=== PATIENT | female | born 1960 | race Caucasian/White ===

== ENCOUNTER 2018-09-18 16:03 | Outpatient (CLI) | payer BC ==
--- NOTE | 2018-09-18 17:45 | RAD ---
CHEST PA AND LATERAL: INDICATIONS: History of URI. COMPARISON: None. FINDINGS: The lungs are clear. The cardiomediastinal silhouette is within normal limits. There is mild spondy losis of the thoracic spine. There is mild thoracic scoliosis. IMPRESSION: No acute cardiopulmonary abnormalities. POS: [facility]
== END 2018-09-18 16:04 | disposition home or self-care (01) ==
LOC: BICRAD 16:03
PROVIDERS: ATTEND Physician Assistant Medical
DX: J06.9 Acute upper respiratory infection, unspecified (principal)
CPT/HCPCS: 71046

== ENCOUNTER 2019-01-08 13:21 | Outpatient (CLI) | payer BC ==
--- NOTE | 2019-01-08 14:27 | MMO ---
Bilateral MAMMO Bilat Diag [facility]DI+NHUNG. CLINICAL HISTORY: Patient is 58 years old and is seen for diagnostic exam and palpable abnormality in the right breast. The patient has the following family history of breast cancer: 2 paternal aunts. The patient has no personal history of cancer. The patient has a history of right Cyst Aspiration in 2000 - benign. VIEWS: The views performed were: bilateral craniocaudal with tomosynthesis; bilateral mediolateral oblique with tomosynthesis; and bilateral mediolateral. FILMS COMPARED: The present examination has been compared to prior imaging studies performed at [facility] on 12/31/2012, 04/27/2016, 08/23/2017 and 01/08/2019, and at [facility] on 11/19/2003, 03/20/2006, 12/26/2007 and 05/07/2009. MAMMOGRAM FINDINGS: The breasts are heterogeneously dense, which could obscure a lesion on mammography. There are stable benign appearing calcifications seen in both breasts. There are no suspicious masses, suspicious calcifications, or new areas of architectural distortion. There is an area of dense breast tissue in the area of palpable concern noted on mammography and focused ultrasound. IMPRESSION: THERE IS NO MAMMOGRAPHIC EVIDENCE OF MALIGNANCY. A ROUTINE FOLLOW-UP MAMMOGRAM IN 1 YEAR IS RECOMMENDED. 3BTHE RESULTS OF THIS EXAM WERE SENT TO THE PATIENT.0B ACR BI-RADS Category 2 - Benign finding MAMMOGRAPHY NOTE: 1. A negative mammogram report should not delay a biopsy if a dominant of clinically suspicious mass is present. 2. Approximately 10% to 15% of breast cancers are not detected by mammography. 3. Adenosis and dense breasts may obscure an underlying neoplasm.
--- NOTE | 2019-01-08 16:05 | ULT ---
FOCUSED ULTRASOUND OF THE RIGHT BREAST: 01/08/19 HISTORY: Palpable abnormality at the 10 o'clock position of the right breast. FINDINGS: Focused ultrasound in the area of palpable concern obtained. No mass or abnormal shadowing is noted. In the area of palpable concern, which is at the 10 o'clock position of the right breast, there is an area of dense breast tissue noted. IMPRESSION: BIRADS 2: Benign Finding(s) Routine annual screening mammography (for women over age 40). Recommend annual screening mammography. POS: OFF
== END 2019-01-08 13:22 | disposition home or self-care (01) ==
LOC: BICMAMMO 13:21
PROVIDERS: ATTEND Obstetrics & Gynecology
DX: N63.10 Unspecified lump in the right breast, unspecified quadrant (principal)
CPT/HCPCS: 77066; G0279

== ENCOUNTER 2020-09-02 08:56 | Outpatient (CLI) | payer BC ==
--- NOTE | 2020-09-02 09:52 | MMO ---
Bilateral MAMMO Bilat Diag DDI+NHUNG. CLINICAL HISTORY: Patient is 60 years old and is seen for diagnostic exam,palpable abnormality and pain in the right breast. The patient has the following family history of breast cancer: 2 paternal aunts. The patient has no personal history of cancer. The patient has a history of right Cyst Aspiration in 2000 - benign. VIEWS: The views performed were: bilateral craniocaudal with tomosynthesis; bilateral mediolateral oblique with tomosynthesis; bilateral mediolateral with tomosynthesis; and bilateral exaggerated craniocaudal. FILMS COMPARED: The present examination has been compared to prior imaging studies performed at [facility] on 08/23/2017, 01/08/2019 and 09/02/2020. This study has been interpreted with the assistance of computer-aided detection. MAMMOGRAM FINDINGS: The breasts are heterogeneously dense, which could obscure a lesion on mammography. Benign calcifications are noted bilaterally. No mammographic or sonograhic abnormality is seen at the site of palpable There are no suspicious masses, suspicious calcifications, or new areas of architectural distortion. IMPRESSION: THERE IS NO MAMMOGRAPHIC EVIDENCE OF MALIGNANCY. A ROUTINE FOLLOW-UP MAMMOGRAM IN 1 YEAR IS RECOMMENDED. THE RESULTS OF THIS EXAM WERE SENT TO THE PATIENT. ACR BI-RADS Category 2 - Benign finding MAMMOGRAPHY NOTE: 1. A negative mammogram report should not delay a biopsy if a dominant of clinically suspicious mass is present. 2. Approximately 10% to 15% of breast cancers are not detected by mammography. 3. Adenosis and dense breasts may obscure an underlying neoplasm. Reported by: KAMAR PEREZ MD Electonically Signed: [id number]
--- NOTE | 2020-09-02 10:17 | ULT ---
LIMITED RIGHT BREAST ULTRASOUND: Date: 09/02/2020 HISTORY: Right breast mass. FINDINGS: Correlation made with mammograms of today. Sonographic evaluation of the area of palpable concern at the 8 and 9 o'clock positions demonstrates no abnormality. IMPRESSION: BI-RADS Category 2 - Benign findings. Return to annual mammographic screening. POS: OFF
== END 2020-09-02 08:57 | disposition home or self-care (01) ==
LOC: BICMAMMO 08:56
PROVIDERS: ATTEND Obstetrics & Gynecology
DX: N60.01 Solitary cyst of right breast (principal)
CPT/HCPCS: 77066; G0279

== ENCOUNTER 2021-08-03 16:14 | Outpatient (CLI) | payer BC | END 2021-08-03 16:15 | disposition home or self-care (01) | LOC: CTENTCT 16:14 | PROVIDERS: ATTEND Otolaryngology Plastic Surgery within the Head & Neck | DX: J32.9 Chronic sinusitis, unspecified (principal) | CPT/HCPCS: 70486 ==

== ENCOUNTER 2021-08-25 09:46 | Outpatient (CLI) | payer BC | END 2021-08-25 09:47 | disposition home or self-care (01) | LOC: BICMRI 09:46 | PROVIDERS: ATTEND Otolaryngology Plastic Surgery within the Head & Neck | DX: G43.709 Chronic migraine without aura, not intractable, without status migrainosus (principal); I67.82 Cerebral ischemia | CPT/HCPCS: 70553 ==

== ENCOUNTER 2021-09-13 15:58 | Outpatient (CLI) | payer BC | END 2021-09-13 15:59 | disposition home or self-care (01) | LOC: BICMAMMO 15:58 | PROVIDERS: ATTEND Family Medicine | DX: Z12.31 Encounter for screening mammogram for malignant neoplasm of breast (principal); Z80.3 Family history of malignant neoplasm of breast | CPT/HCPCS: 77063; 77067 ==

== ENCOUNTER 2022-12-07 15:48 | Outpatient (CLI) | payer BC | END 2022-12-07 15:49 | disposition home or self-care (01) | LOC: BICMAMMO 15:48 | PROVIDERS: ATTEND Family Medicine | DX: Z12.31 Encounter for screening mammogram for malignant neoplasm of breast (principal); R92.1 Mammographic calcification found on diagnostic imaging of breast; Z91.89 Other specified personal risk factors, not elsewhere classified; Z80.3 Family history of malignant neoplasm of breast | CPT/HCPCS: 77063; 77067 ==

== ENCOUNTER 2023-12-22 11:41 | Outpatient (CLI) | payer BC | END 2023-12-22 11:42 | disposition home or self-care (01) | LOC: BICMAMMO 11:41 | PROVIDERS: ATTEND Family Medicine | DX: Z12.31 Encounter for screening mammogram for malignant neoplasm of breast (principal); Z80.3 Family history of malignant neoplasm of breast | CPT/HCPCS: 77063; 77067 ==